=== PATIENT | female | born 1980 | race Caucasian/White ===

== ENCOUNTER 2020-01-25 13:53 | Observation (INO) ==
[2020-01-25] MEDS ORDERED: SODIUM CHLORIDE 0.9% 1,000 ML IV STA (14:24)
[2020-01-25] MEDS ORDERED: HYDROmorphone 2 MG/1 ML VIAL IV STA ×2 (14:24→17:11)
[2020-01-25] MEDS ORDERED: ONDANSETRON 4 MG/2 ML VIAL IV STA ×2 (14:24→17:11)
[2020-01-25 15:00] LABS: Basophils % 0.2 % (0.0-0.8); Eosinophils % 0.2 % (0.00-10.9); Hematocrit 45.9 VOL% (35.7-47.0); Hemoglobin 15.5 GM/DL (12.0-16.0); Immature Granulocytes % 0.3 %; Immature Granulocytes Absolute 0.04 #; Lymphocytes # 2.4 10*3/uL (1.4-4.0); Lymphocytes % 20.6 % (21.3-54.2); Mean Corpuscular HGB Conc 33.8 GM/DL (32-36); Mean Corpuscular Volume 94.4 FL (87-102); Mean Platelet Volume 9.2 FL (9.6-12.0); Neutrophils % 69.7 % (38.7-73.9); Platelet Count 225 T/CUMM (130-400); Red Blood Count 4.86 MC/CUMM (3.8-5.5); Red Cell Distribution Width 12.8 % (9.3-17.3); White Blood Count 11.4 T/CUMM (4-12)
[2020-01-25 15:22] LABS: Alanine Aminotransferase 27 U/L (13-56); Albumin 3.8 G/DL (3.4-5.0); Alkaline Phosphatase 80 U/L (45-117); Aspartate Amino Transferase 6 U/L (0-37); Bilirubin,Total < 0.39 MG/DL (0.2-1.0); Blood Urea Nitrogen 10 MG/DL (7-18); Calcium 9.1 MG/DL (8.5-10.1); Estimated Glom Filtration Rate 63 ML/MIN; Glucose 118 MG/DL (74-106); Osmolality,Calculated 280.3 MOS/KG (273-304); Total Protein 7.2 G/DL (6.4-8.3)
[2020-01-25 15:36] LABS: Bacteria,Urine Occasional /HPF (Few); Bilirubin,Urine Negative (Negative); Blood, Urine Large mg/dL (Negative); Glucose,Urine (UA) Negative (Negative); Ketones,Urine Negative (Negative); Mucus,Urine Occasional /LPF (Occasional); Nitrite,Urine Negative (Negative); Protein,Urine Negative; RBC,Urine 218 /HPF (0-4); Squamous Epithelial Cell,Urine Occasional /HPF (0-10); Urine Appearance CLEAR (Clear); Urine Color Yellow (Yellow); Urine Specific Gravity > 1.060 (1.001-1.035); Urine Urobilinogen < 2.0 EU/DL (0.2-1.0); WBC,Urine 2 /HPF (0-6)
[2020-01-25] MEDS ORDERED: [UNRECOGNIZED DRUG - OTHER] SUBCUT PRN (16:36)
[2020-01-25] MEDS ORDERED: SUMATRIPTAN SUCCINATE SUBCUT PRN (16:36)
[2020-01-25] MEDS: SODIUM CHLORIDE 0.9% 1,000 ML IV SCH ×2 (18:00→23:38)
[2020-01-25] MEDS: HYDROmorphone 2 MG/1 ML VIAL IV PRN (22:48)
[2020-01-26] MEDS: HYDROmorphone 2 MG/1 ML VIAL IV PRN ×5 (03:56→20:59)
[2020-01-26] MEDS: SODIUM CHLORIDE 0.9% 1,000 ML IV SCH ×6 (04:22→23:26)
[2020-01-26] MEDS ORDERED: POTASSIUM CHLORIDE 20 MEQ TABLET PO ONE (07:30)
[2020-01-26] MEDS: VENLAFAXINE XR 75 MG CAPSULE PO SCH (09:22)
[2020-01-26] MEDS: PANTOPRAZOLE 40 MG TABLET PO SCH (09:23)
[2020-01-26] MEDS: ATORVASTATIN 10 MG TABLET PO SCH (09:23)
[2020-01-26] MEDS: LOSARTAN 50 MG TABLET PO SCH (09:23)
[2020-01-26] MEDS: TAMSULOSIN 0.4 MG CAPSULE PO SCH ×2 (12:15→20:58)
[2020-01-26] MEDS: ONDANSETRON 4 MG/2 ML VIAL IV PRN (15:24)
[2020-01-27] MEDS: HYDROmorphone 2 MG/1 ML VIAL IV PRN ×2 (01:32→10:23)
[2020-01-27] MEDS: ONDANSETRON 4 MG/2 ML VIAL IV PRN (01:32)
[2020-01-27] MEDS: SODIUM CHLORIDE 0.9% 1,000 ML IV SCH (07:04)
[2020-01-27] MEDS ORDERED: FAMOTIDINE 20 MG/2 ML VIAL IV ONE (07:57)
[2020-01-27] MEDS ORDERED: LIDOCAINE 2% TOP JELLY 20 ML VIAL INTRAURETH ONE (08:02)
[2020-01-27] MEDS ORDERED: LEVOFLOXACIN INJ 100 ML IV ONE (08:40)
[2020-01-27] MEDS ORDERED: propofoL 200 MG/20 ML VIAL IV ONE (09:07)
[2020-01-27] MEDS ORDERED: fentaNYL 100 MCG/2 ML VIAL ONE (09:07)
[2020-01-27] MEDS ORDERED: MIDAZOLAM 2 MG/2 ML VIAL ONE (09:07)
[2020-01-27] MEDS ORDERED: LIDOCAINE 2% 5 ML VIAL ONE (09:07)
[2020-01-27] MEDS ORDERED: SEVOFLURANE 1 UNIT/15 MINUTE INH ONE (09:07)
[2020-01-27] MEDS ORDERED: DEXAMETHASONE 4 MG/1 ML VIAL ONE (09:08)
[2020-01-27] MEDS ORDERED: ONDANSETRON 4 MG/2 ML VIAL ONE (09:08)
[2020-01-27] MEDS ORDERED: HYDROmorphone 2 MG TABLET PO PRN (09:23)
[2020-01-27 10:17] VITALS: BP 130/86
[2020-01-27] MEDS: TAMSULOSIN 0.4 MG CAPSULE PO SCH (10:18)
[2020-01-27] MEDS: VENLAFAXINE XR 75 MG CAPSULE PO SCH (10:18)
[2020-01-27] MEDS: ATORVASTATIN 10 MG TABLET PO SCH (10:18)
[2020-01-27] MEDS: LOSARTAN 50 MG TABLET PO SCH (10:19)
[2020-01-27] MEDS: PANTOPRAZOLE 40 MG TABLET PO SCH (10:25)
== END 2020-01-27 12:23 | disposition home or self-care (01) ==
LOC: N.EDINP 13:53 → N.ED 13:53 → N.EDINP 19:30 → N.3E 19:56
PROVIDERS: ADMIT Family Medicine; ATTEND Family Medicine